=== PATIENT | male | born 1960 | race Caucasian/White ===

== ENCOUNTER 2016-12-04 03:10 | Emergency (ER) | payer OTHER ==
[~2016-12-04] VITALS: Ht 177.8 cm; Wt 89.1 kg
[~2016-12-04 03:10] MED LIST: AMLO5TAB2 PO; ATOR20TA PO; METF500T4 PO
--- NOTE | 2016-12-04 03:14 | ED.REPORT ---
HPI-Allergic Reaction Date of Service Dec 04, 2016 ED Provider: Eugene Espinoza MD Patient is a 56 year old male with a history of angioedema presents to the ED via EMS with worsening tongue swelling onset just prior to arrival. Patient reports history of similar episodes, all have which resolved without intervention. He denies wheezing and SOB. He is unsure if he has a peanut allergy and did consume peanuts earlier today. Nursing Notes Stated Complaint: ALLERGIC REACTION Nursing Notes Reviewed: Yes Allergies: Coded Allergies: No Known Allergies (Unverified , 10/03/16) Scheduled Amlodipine (Amlodipine) 5 Mg Tablet 5 MG PO DAILY Atorvastatin (Lipitor) 20 Mg Tablet 20 MG PO DAILY Metformin (Metformin) 500 Mg Tablet 500 MG PO BID Prednisone (PredniSONE) 20 Mg Tablet 20 MG PO TID Scheduled PRN Epinephrine (Epipen 2-Aniket) 0.3 Mg/0.3 Ml Auto.injct 0.3 MG IJ ONCE PRN PRN For Anaphyllaxis General Time Seen by MD: 03:14 Chief Complaint Allergic reaction Hx Obtained From: Patient, EMS Arrived By: Ambulance Onset Occurred: Just prior to arrival Symptom Duration: Since onset Progression Since Onset: Unchanged Severity: Current: No pain currently Recent Healthcare: Recent doctor visit Similar Sx Previous: Yes Past Medical History Past Medical History Angioedema Past Surgical History denies Smoking History Current Every Day Smoker Ambulatory Status Independent Review of Systems Respiratory: Denies: Shortness of breath, Wheezing Allergy / Immune: Reports: Allergic reaction Complete sys rev & neg: except as marked. Physical Exam Initial Vital Signs Vital Signs (First) Date Time Temp Pulse Resp B/P Pulse Ox O2 Delivery O2 Flow Rate FiO2 12/04/16 03:18 36.5 86 16 154/95 98 Room Air Initial VS: Reviewed, Vital signs abnormal General/Constitutional: Awake, Alert, Cooperative, Not toxic appearing Respiratory / Chest: Atraumatic, Breath sounds NL, Breath sounds = bilat, No respiratory distress, No rales, No rhonchi, No wheezing Cardiovascular: Heart rate NL, Regular rhythm, Heart sounds NL, No gallop, No murmurs, No rubs Skin: Atraumatic, Color NL, No rash, Warm, Dry Pharynx / Tonsils / Uvula: Positive: Uvula enlarged swollen tongue swollen pharynx Interpretation & Diagnostics Lab Results Interpretation Test 12/04/16 03:35 Hold Purple Top Tube Received (Received) Hold Blue Top Tube Received (Received) Hold Red Top Tube Received (Received) Hold [place] Top Tube Received (Received) ECG Interpretation Time: 03:47 Interpreted by: ED physician Normal ECG Interpretation: Normal ECG w/ rate of... (88) Re-Eval/Medical Decision Med Decision/Clinical Course 56-year-old male with recurrent episodes of angioedema of uncertain etiology. He was given IV Benadryl en route, and upon arrival here was given subcutaneous epinephrine, Solu-Medrol 125 mg, and a racemic epinephrine treatment. His symptoms gradually resolved. He was able to sleep some and upon awakening had no further swelling or abnormal sensation. Re-Evaluation/Progress : Time of Eval: 03:15 Patient Status: Condition improved, Mild relief Re-Evaluation/Progress Note: Pt rechecked. Pt's breathing has improved and he is more comfortable. Counseled Regarding: Diagnosis, Lab results, Need for follow-up, When/why to return to ED Discharge & Departure Primary Impression: Angio-edema Encounter type: subsequent encounter Qualified Code: T78.3XXD - Angioneurotic edema, subsequent encounter Disposition: Home Discharge Condition All VS Reviewed: Yes Condition: Stable Patient Instructions: Anaphylaxis (DC) Additional Instructions: Prednisone 20 mg by mouth 3 times a day for 5 days, #15 prescription written. Continue the process of evaluation to see if you can figure out the cause of this. Recommend that you have Benadryl and an EpiPen available. Referrals: NOPCP (PCP) Macielibe Attestation Portions of this note were transcribed by Antonio Jesus. I, Dr. Espinoza personally performed the history, physical exam and medical decision-making; I reviewed and confirmed the accuracy of the information in the transcribed note. Signed by: Angelica Whiting, 12/04/16 0601 Eugene Espinoza MD Dec 04, 2016 03:14 ANTONIO JESUS Dec 04, 2016 03:20
[2016-12-04 03:18] VITALS: BP 154/95; PULSE 86; RESP 16; O2SAT 98
[2016-12-04] MEDS ORDERED: Epinephrine Racemic 2.25% 0.5 mL Inhalation Solution NEB ONE (03:20)
[2016-12-04] MEDS ORDERED: 0.9% Sodium Chloride 1,000 ML IV ONE (03:20)
[2016-12-04] MEDS ORDERED: MethylprednisoLONE Sodium Succinate 62.5 mg/mL 2 mL Inj IVPUSH ONE (03:20)
[2016-12-04 03:35] VITALS: PULSE 86; RESP 14; O2SAT 96
[2016-12-04 04:21] VITALS: BP 139/71; PULSE 96; RESP 18; O2SAT 100
[2016-12-04 06:01] VITALS: BP 127/77; PULSE 96; RESP 19; O2SAT 99
[2016-12-04] MEDS ORDERED: EPIN0.3P2 IJ (06:02)
[2016-12-04] MEDS ORDERED: PRE20 PO (06:02)
[2016-12-04 06:27] VITALS: BP 132/78; PULSE 88; RESP 16; O2SAT 99
== END 2016-12-04 06:28 | disposition home or self-care (01) ==
LOC: SED 03:10
DX: T78.3XXA Angioneurotic edema, initial encounter (principal); R22.0 Localized swelling, mass and lump, head; Y93.89 Activity, other specified; Y92.89 Other specified places as the place of occurrence of the external cause; Y99.8 Other external cause status; F17.200 Nicotine dependence, unspecified, uncomplicated; Z79.84 Long term (current) use of oral hypoglycemic drugs
CPT/HCPCS: 93005; 94640; 96372; 96374; 99284; J0171; J2930; J7030

== ENCOUNTER 2017-07-09 06:41 | Observation (INO) | payer OTHER ==
[~2017-07-09] VITALS: Ht 175.3 cm; Wt 91.1 kg
[2017-07-09] VITALS (9 sets, daily range): BP systolic 149–198; BP diastolic 91–115; PULSE 83–99; RESP 15–22; O2SAT 95–98
--- NOTE | 2017-07-09 06:38 | ED.REPORT ---
HPI-Allergic Reaction Date of Service Jul 09, 2017 ED Provider: Amol Reynolds Pt is a 57 year old male with a history of angioedema, DM, hyperlipidemia and HTN who presents to the ED via EMS with worsening angioedema onset 03:00 today. He c/o mild dysphagia secondary to the angioedema. The pt also reports emesis and hematemesis, and he is currently experiencing nausea. He denies SOB, chest pain, abdominal pain, wheezing, and any other symptoms. EMS reports that pt does not have urticaria. Per pt, his symptoms have not worsened since being picked up by EMS. The pt states that he has experienced 3 similar episodes previously with one requiring intubation. He reports that he started taking lisinopril this month. The pt presented to the ED on 12/04/16 with similar symptoms after eating peanuts. His symptoms gradually resolved and he was discharged. He has previously reported at least 10 mild episodes of angioedema of unknown etiology that he did not seek medical attention for. Nursing Notes Stated Complaint: ANGIOEDEMA Chief Complaint: Angioedema Nursing Notes Reviewed: Yes Allergies: Coded Allergies: No Known Allergies (Unverified , 10/03/16) Scheduled Amlodipine (Amlodipine) 5 Mg Tablet 5 MG PO DAILY Atorvastatin (Lipitor) 20 Mg Tablet 20 MG PO DAILY Metformin (Metformin) 500 Mg Tablet 500 MG PO BID Prednisone (PredniSONE) 20 Mg Tablet 20 MG PO TID Scheduled PRN Epinephrine (Epipen 2-Aniket) 0.3 Mg/0.3 Ml Auto.injct 0.3 MG IJ ONCE PRN PRN For Anaphyllaxis General Time Seen by MD: 06:38 Chief Complaint Other (Angioedema) Hx Obtained From: Patient, EMS Arrived By: Ambulance Onset Occurred: 1 - 4 hours ago Symptom Duration: Since onset Severity: Current: No pain currently Severity: Maximum: No pain Recent Healthcare: No recent doctor visit, No recent hospitalization Similar Sx Previous: Yes Past Medical History Past Medical History Angioedema - 3 episodes requiring medical attention with 1 episode requiring intubation Reports: Diabetes mellitus, Hyperlipidemia, Hypertension Past Surgical History denies Smoking History Current Every Day Smoker Social History Alcohol Use: "Social" Drug Use: Denies drug use Ambulatory Status Independent Review of Systems + Angioedema + dysphagia Denies urticaria Respiratory: Denies: Shortness of breath, Wheezing GI: Reports: Hematemesis, Nausea, Vomiting, Denies: Abdominal pain Complete sys rev & neg: except as marked. Cardiovascular: Denies: Chest pain Physical Exam Initial Vital Signs Vital Signs (First) Date Time Temp Pulse Resp B/P Pulse Ox O2 Delivery O2 Flow Rate FiO2 07/09/17 06:44 36.6 96 20 198/103 98 Room Air Initial VS: Reviewed Head / Eyes: Atraumatic, Normocephalic Neck: Supple, Full range of motion Abdomen / GI: Soft, Non-tender Extremities: Vascular intact, Neuro intact Neurologic: Alert, Oriented, Nonfocal Psychiatric: Mood/affect normal, Behavior normal General/Constitutional: Awake, Alert Respiratory / Chest: Atraumatic, Breath sounds NL, Breath sounds = bilat Cardiovascular: Heart rate NL, Regular rhythm, Heart sounds NL Skin: Atraumatic, Warm, Dry, Intact Mouth: Positive: Angioedema present... Interpretation & Diagnostics Lab Results Interpretation Result Diagram: 07/09/17 0710 07/09/17 0643 Test 07/09/17 06:43 07/09/17 07:10 Sodium Level 140mEq/L (134-144) Potassium Level 5.0mEq/L (3.5-5.2) Chloride Level 99mEq/L (97-108) Carbon Dioxide Level 23mmol/L (18-29) Blood Urea Nitrogen 16mg/dL (6-24) Creatinine 1.05mg/dL (0.76-1.27) Estimat Glomerular Filtration Rate 77mL/min (>59) Glucose Level 133mg/dL (60-99) Calcium Level 9.3mg/dL (8.5-10.1) Total Bilirubin 0.4mg/dL (0.0-1.2) Aspartate Amino Transf (AST/SGOT) 35U/L (0-50) Alanine Aminotransferase (ALT/SGPT) 29U/L (0-44) Alkaline Phosphatase 55U/L (25-150) Total Protein 7.8g/dL (6.4-8.4) Albumin 4.4g/dL (3.4-5.0) White Blood Count 12.4th/mm3 (3.8-10.1) Red Blood Count 4.42mil/mm3 (4.40-5.80) Hemoglobin 14.1g/dL (13.8-17.2) Hematocrit 40.7% (41.0-50.0) Mean Corpuscular Volume 92.1fL (81-100) Mean Corpuscular Hemoglobin 31.9pg (27.0-35.0) Mean Corpuscular Hemoglobin Concent 34.6% (32.0-37.0) Red Cell Distribution Width 12.2% (12.3-15.4) Platelet Count 225bil/L (150-400) Neutrophils (%) (Auto) 44.2% (40-74) Lymphocytes (%) (Auto) 38.3% (14-46) Monocytes (%) (Auto) 12.1% (4-12) Eosinophils (%) (Auto) 4.9% (0-5) Basophils (%) (Auto) 0.3% (0-3) Re-Eval/Medical Decision Source of Hx: Old records Re-Evaluation/Progress #1: Time of Eval: 07:21 Re-Evaluation/Progress Note: Pt rechecked. Pt reports that his angioedema feels the same. Informed pt of plan for admission. Pt understands and agrees with plan for admission. All questions addressed. Re-Evaluation/Progress #2: Time of Eval: 08:05 Re-Evaluation/Progress Note: Pt rechecked. Pt is resting comfortably. Consultation : Referral / Consult Name: Tunde Mendoza MD Consulted With: Hospitalist Call Returned at: 08:07 [employer]ash[employer] Designer: Will see patient, Agrees with eval, Agrees with plan, Accepts admit Counseled Regarding: Diagnosis, Lab results, Need for admission Discharge & Departure Primary Impression: Angio-edema Encounter type: initial encounter Qualified Code: T78.3XXA - Angioneurotic edema, initial encounter Disposition: ADMITTED TO HOSPITAL Discharge Condition All VS Reviewed: Yes Condition: Stable Referrals: Arnav Oconnor MD (PCP) Crit Care Except Billable Proc Time Spent: 30-74 minutes Services Performed: Patient management by me, Time spent at bedside, Reviewing test results, Reviewing imaging, Discussing patient care, Documentation in record Scribe Attestation Portions of this note were transcribed by Julia Wolf. I, Dr. Reynolds personally performed the history, physical exam and medical decision-making; I reviewed and confirmed the accuracy of the information in the transcribed note. Signed by: Angelica Rivas, 07/09/17. copies to: Arnav Oconnor MD, Kirk H MD Jul 09, 2017 06:38 Julia Bowers Jul 09, 2017 06:50
[~2017-07-09 06:41] MED LIST changes: +0.9% Sodium Chloride 1,000 ML IV ONE; +EPIN0.3P2 IJ; +Epinephrine Racemic 2.25% 0.5 mL Inhalation Solution NEB ONE; +Famotidine Inj 20 MG in IV Premix 1 EACH IV ONE; +Glucagon 1 mg/mL Inj IV ONE; +MethylprednisoLONE Sodium Succinate 62.5 mg/mL 2 mL Inj IVPUSH ONE; +PRE20 PO
[2017-07-09 07:22] LABS: Mean Corpuscular Hemoglobin 31.9 pg (27.0-35.0); Mean Corpuscular Volume 92.1 fL (81-100)
[2017-07-09] MEDS ORDERED: Alum-Mag Hydrox-Simeth 30 mL Suspension PO PRN (08:15)
[2017-07-09] MEDS ORDERED: Ondansetron 2 mg/mL 2 mL Inj IVPUSH PRN (08:15)
[2017-07-09] MEDS ORDERED: Polyethylene Glycol (PEG) 17 Gm Powder PO PRN (08:15)
[2017-07-09 08:21] LABS: BASOPHILS % (AUTO) 0.3 % (0-3); EOSINOPHILS % (AUTO) 4.9 % (0-5); MONOCYTES % (AUTO) 12.1 % (4-12); NEUTROPHILS % (AUTO) 44.2 % (40-74)
[2017-07-09] MEDS ORDERED: Heparin 5,000 Unit/mL Inj SUBQ SCH (08:30)
[2017-07-09] MEDS ORDERED: METF500T7 PO (08:59)
[2017-07-09] MEDS ORDERED: LISI10TA PO (08:59)
[2017-07-09] MEDS ORDERED: SIMV20TA4 PO (08:59)
--- NOTE | 2017-07-09 13:56 | PCM.HPMED ---
Subjective Date of Service Jul 09, 2017 Primary Provider: Admitting Physician: Tunde Mendoza MD Primary Care Physician: Arnav Oconnor MD Attending Physician: Tunde Mendoza MD Chief Complaint: Tongue and facial swelling History of Present Illness: Patient is a 57-year-old male from home who carries a medical history significant for diabetes type II, dyslipidemia, and hypertension presented to the ED with significant tongue and left facial swelling. Per patient, he reports left facial swelling with lips involvement and associated facial pain that started around 3:00 AM today. Patient activated EMS after taking 1 dose of Benadryl without effect and that the swelling seems to be spreading to his right tongue and cheek. Patient had past history of angioedema started in the fall of 2014 with 1 event in September 2016 resulting in a compromised airway, requiring emergent intubation. A difficult intubation per patient. Patient states increasing in frequency of the usually left facial swelling with tongue involvement, 2x this month. Each episode resolved with Benadryl however. Interestingly, patient was started on lisinopril for hypertension month ago. Patient was prescribed with Benadryl nightly. Noncompliant to medication however due to increasing drowsiness. 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 On interview, patient denies any difficulty breathing, swallowing. He states that left facial and tongue swelling has significantly decreased since this morning. No shortness of breath, chest pain, wheezes, lightheadedness or dizziness. He further denies any rashes. He does note some itching in his throat on presentation in ED, however this is resolved. Patient states that he has had increasing cough recently, and violently bringing up tinges of blood. Denies any melanotic stool. In the ED, vital significant for blood pressure 198/103, repeat blood pressure 160/90. Respiratory rate 20, pulse oximetry 98% on room air. Patient received ischemic epinephrine, Solu-Medrol, Benadryl, and also famotidine to completely inhibit histamine receptors prior to admission onto medical floor for observation. Review of Systems: A comprehensive review of systems was conducted with the patient and found to be negative except as above in the History of Present Illness. 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 Hx Alcohol Use: Yes Hx Substance Use: No Hx Tobacco Use: Yes (I have from reports the patient is a current smoker, and tobacco chewer) Smoking Status: Current Every Day Smoker Exam Vital Signs Vital Sign - Last Date Time Temp Pulse Resp B/P Pulse Ox O2 Delivery O2 Flow Rate FiO2 07/09/17 12:32 36.7 86 20 170/109 98 Room Air 07/09/17 09:25 2.00 Intake and Output 07/08/17 07/08/17 07/09/17 Cumulative From/Thru 15:00 23:00 07:00 07/09/17 06:44 - 07/09/17 06:53 Intake Total 1000 ml 1000 ml Balance 1000 ml 1000 ml Intake IV Total 1000 ml 1000 ml Exam General: No acute distress, appropriately interactive HEENT: Normocephalic, atraumatic. PERRLA, EOMI, Anicteric sclerae, moist conjunctivae. Mild left lower cheek swelling, Tongue with swelling, no oral sores or rash noted, Mallampati score of 4 Neck: No JVD, No bruits. No lymphadenopathy or thyromegaly. Cardiovascular: Regular rate and rhythm with no murmurs, rubs, or gallops appreciated Pulmonary: b/l air sound with no crackles, wheezes, or rhonchi. no use of accessory muscles. Abdomen: +Bowel sound, Soft, nontender, nondistended. Extremities: No clubbing or cyanosis, no lymphedema, no b/l lower leg edema Skin: Normal temperature, turgor, and texture; no rash. No visualized skin ulcer. Neurological: CN II-VII grossly intact, moving equally on all 4 extremities Psychiatric: Normal mood and affect. AOx3 Lab and Diagnostics Result Diagram: 07/09/17 0710 07/09/17 0643 Assessment & Plan Patient 57-year-old male with medical history of hypertension, dyslipidemia, and diabetes type II admitted on observation for angioedema. Angioedema -Unknown trigger, possible peanut allergies, possible lisinopril -Received famotidine, Benadryl, Solu-Medrol, racemic epinephrine -Continue Benadryl 25 mg when necessary, -We will send patient home with prednisone 50 mg PRN -Recommend patient follow-up with optical instrument inspector to define root cause of his angioedema Severe essential hypertension -Discontinue lisinopril. HCTZ gives headaches in the past. -cont amlodipine. consider increasing amlodipine 10mg Diabetes type II, [id number]-cysupbkoh -A1c pending -Holding metformin -Start low-dose lispro sliding scale Dyslipidemia -Holding simvastatin -Started atorvastatin DVT prophylaxis heparin CODE STATUS full code Patient Status: Patient is admitted under observation status with expected length of stay LESS than 2 midnights due to severity of presenting symptoms, risk of adverse event, and complexity of treatment plan. GI Prophylaxis: H2 peace VTE Prophylaxis: Sub-Q Heparin (Unfractionated) Resuscitation Status: CPR: Attempt Resuscitation Attending Statement I interviewed and examined the patient on rounds today. Recommend high-dose cetirizine. Also counseled patient to take prednisone promptly with any emergent symptoms. I agree with the assessment and plan as stated above. copies to: Arnav Oconnor MD Raymond,Danny H Jul 09, 2017 13:56 Tunde Mendoza MD Jul 10, 2017 07:09
[2017-07-09] MEDS ORDERED: Glucose 40% Oral Gel 15 Gm Tube PO PRN (14:00)
[2017-07-09] MEDS ORDERED: Dextrose 10% 250 ML IV PRN (14:40)
[2017-07-09] MEDS ORDERED: PRED50TA PO (15:08)
[2017-07-09] MEDS ORDERED: AMLO10TA3 PO (15:08)
--- NOTE | 2017-07-09 15:18 | PCM.DIMED ---
Discharge Instructions Date of Service Jul 09, 2017 Dates of Hospitalization Jul 09, 2017 at 08:35 Discharge Diagnosis Discharge Diagnosis Angioedema Diabetes type II, [id number] Essential hypertension Dyslipidemia Medication Instructions Additional med instructions For your angioedema -Take [id number] at double strength loratadine 20mg at onset of swelling -Additionally, take prednisone 50mg at onset of swelling -Epi-pen as well. For your blood pressure medication: -Stopped taking lisinopril -Increase your amlodipine 10 mg daily Resume all the medication Diet Discharge Diet: No restrictions Activity Discharge Activity: No restrictions Call your provider Call your provider for: Shortness of breath Patient Instructions Follow-up plan Angioedema, we admitted you out of concern for possible airway obstruction. Please take your medications as instructed above. Recommend follow-up with your primary care provider within a week -Suggest that you get a referral to an research lab assistant to figure out the root cause of your angioedema. Follow-up with PCP in: 1 week Danny Raymond DO Jul 09, 2017 15:18
--- NOTE | 2017-07-09 15:43 | PCM.DC.MED ---
Discharge Summary Date of Service Jul 09, 2017 Dates of Hospitalization Date of Hospital Admission Jul 09, 2017 at 08:35 Date of Discharge: Jul 09, 2017 Providers: Admitting Physician: Tunde Mendoza MD Primary Care Physician: Arnav Oconnor MD Attending Physician: Tunde Mendoza MD Diagnosis at Time of Discharge Diagnosis at Time of Discharge Angioedema Diabetes type II, [id number] Essential hypertension Dyslipidemia Brief History Patient is a 57-year-old male from home who carries a medical history significant for diabetes type II, dyslipidemia, and hypertension presented to the ED with significant tongue and left facial swelling. Per patient, he reports left facial swelling with lips involvement and associated facial pain that started around 3:00 AM today. Patient activated EMS after taking 1 dose of Benadryl without effect and that the swelling seems to be spreading to his right tongue and cheek. Patient had past history of angioedema started in the fall of 2014 with 1 event in September 2016 resulting in a compromised airway, requiring emergent intubation. A difficult intubation per patient. Patient states increasing in frequency of the usually left facial swelling with tongue involvement, 2x this month. Each episode resolved with Benadryl however. Interestingly, patient was started on lisinopril for hypertension month ago. Patient was prescribed with Benadryl nightly. Noncompliant to medication however due to increasing drowsiness. 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 On interview, patient denies any difficulty breathing, swallowing. He states that left facial and tongue swelling has significantly decreased since this morning. No shortness of breath, chest pain, wheezes, lightheadedness or dizziness. He further denies any rashes. He does note some itching in his throat on presentation in ED, however this is resolved. Patient states that he has had increasing cough recently, and violently bringing up tinges of blood. Denies any melanotic stool. In the ED, vital significant for blood pressure 198/103, repeat blood pressure 160/90. Respiratory rate 20, pulse oximetry 98% on room air. Patient received ischemic epinephrine, Solu-Medrol, Benadryl, and also famotidine to completely inhibit histamine receptors prior to admission onto medical floor for observation. Hospital Course Patient 57-year-old male with medical history of hypertension, dyslipidemia, and diabetes type II admitted on observation for angioedema. Angioedema -Unknown trigger, possible peanut allergies, possible lisinopril -Received famotidine, Benadryl, Solu-Medrol, racemic epinephrine -Admitted for possible worsening of obstructive airway. -Difficult intubation in the past with severe swelling and edemetous epiglottis. -Continue Benadryl 25 mg when necessary, -Discharge home with prednisone 50 mg PRN -Recommend patient follow-up with package maker to define root cause of his angioedema -D/c lisinopril Severe essential hypertension -Discontinue lisinopril. HCTZ gives headaches in the past. -Increasing amlodipine to 10 mg daily Diabetes type II, [id number] -A1c pending -Start low-dose lispro sliding scale while inpatient -Resume metformin on discharge Dyslipidemia -Started atorvastatin while inpatient -Resume simvastatin on discharge Exam Vital Signs (Last) Date Time Temp Pulse Resp B/P Pulse Ox O2 Delivery O2 Flow Rate FiO2 07/09/17 14:54 99 158/95 07/09/17 12:32 36.7 20 98 Room Air 07/09/17 09:25 2.00 Exam General: No acute distress, appropriately interactive HEENT: Normocephalic, atraumatic. PERRLA, EOMI, Anicteric sclerae, moist conjunctivae. Mild left lower cheek swelling, Tongue with some swelling, decreased to near baseline, no oral sores or rash noted, Mallampati score of 3 Neck: No JVD, No bruits. No lymphadenopathy or thyromegaly. Cardiovascular: Regular rate and rhythm with no murmurs, rubs, or gallops appreciated Pulmonary: b/l air sound with no crackles, wheezes, or rhonchi. no use of accessory muscles. Abdomen: +Bowel sound, Soft, nontender, nondistended. Extremities: No clubbing or cyanosis, no lymphedema, no b/l lower leg edema Skin: Normal temperature, turgor, and texture; no rash. No visualized skin ulcer. Neurological: CN II-VII grossly intact, moving equally on all 4 extremities Psychiatric: Normal mood and affect. AOx3 Test 07/09/17 06:43 07/09/17 07:10 Sodium Level 140mEq/L (134-144) Potassium Level 5.0mEq/L (3.5-5.2) Chloride Level 99mEq/L (97-108) Carbon Dioxide Level 23mmol/L (18-29) Blood Urea Nitrogen 16mg/dL (6-24) Creatinine 1.05mg/dL (0.76-1.27) Estimat Glomerular Filtration Rate 77mL/min (>59) Glucose Level 133mg/dL (60-99) Calcium Level 9.3mg/dL (8.5-10.1) Total Bilirubin 0.4mg/dL (0.0-1.2) Aspartate Amino Transf (AST/SGOT) 35U/L (0-50) Alanine Aminotransferase (ALT/SGPT) 29U/L (0-44) Alkaline Phosphatase 55U/L (25-150) Total Protein 7.8g/dL (6.4-8.4) Albumin 4.4g/dL (3.4-5.0) White Blood Count 12.4th/mm3 (3.8-10.1) Red Blood Count 4.42mil/mm3 (4.40-5.80) Hemoglobin 14.1g/dL (13.8-17.2) Hematocrit 40.7% (41.0-50.0) Mean Corpuscular Volume 92.1fL (81-100) Mean Corpuscular Hemoglobin 31.9pg (27.0-35.0) Mean Corpuscular Hemoglobin Concent 34.6% (32.0-37.0) Red Cell Distribution Width 12.2% (12.3-15.4) Platelet Count 225bil/L (150-400) Neutrophils (%) (Auto) 44.2% (40-74) Lymphocytes (%) (Auto) 38.3% (14-46) Monocytes (%) (Auto) 12.1% (4-12) Eosinophils (%) (Auto) 4.9% (0-5) Basophils (%) (Auto) 0.3% (0-3) Discharge Medications Discharge Medications Amlodipine (Amlodipine) 10 Mg Tablet 10 MG PO DAILY Prescribed by: ANDERSON EPSTEIN DO Metformin ER (Metformin ER) 500 Mg Tablet 500 MG PO TIDWM (Reported) Prednisone (PredniSONE) 50 Mg Tablet 50 MG PO ASDIRECTED Prescribed by: ANDERSON EPSTEIN DO Simvastatin (Simvastatin) 20 Mg Tablet 20 MG PO HS (Reported) As needed Epinephrine (Epipen 2-Aniket) 0.3 Mg/0.3 Ml Auto.injct 0.3 MG IJ ONCE PRN PRN For Anaphyllaxis Prescribed by: VIKI JONES MD Additional med instructions For your angioedema -Take [id number] at double strength loratadine 20mg at onset of swelling -Additionally, take prednisone 50mg at onset of swelling -Epi-pen as well. For your blood pressure medication: -Stopped taking lisinopril -Increase your amlodipine 10 mg daily Resume all the medication Followup Plan Follow-up plan Angioedema, we admitted you out of concern for possible airway obstruction. Please take your medications as instructed above. Recommend follow-up with your primary care provider within a week -Suggest that you get a referral to an package maker to figure out the root cause of your angioedema. Discharge Diet: No restrictions Discharge Activity: No restrictions Follow-up with PCP in: 1 week Time spent 35 minutes Attending Statement I interviewed and examined the patient on rounds today. I agree with the assessment and plan as stated above. copies to: Arnav Oconnor MD,Anderson H Jul 09, 2017 15:43 Tunde Mendoza MD Jul 10, 2017 07:11
--- NOTE | 2017-07-09 15:50 | NUR ---
Arrived, Discharge 899 - Received report from Eugenia Boykin RN in the ED. 924 - He arrived from the ED to [facility] 2002 with a diagnosis of angioedema. He was settled into his room. 929 - Discussed his care with Dr. Mendoza, Dr. Raymond, and the rest of the multidisciplinary care team. 1256 - Noted pt did not have any diet ordered. Paged Dr. Mendoza for a diet order. 1315 - Spoke with the patient about his new diet that was ordered. He said he actually really wanted to leave now as he was very worried about his mounting hospital bills and that "every hour was another $1000." Went to speak to Dr. Mendoza for the patient about this. Dr. Mendoza wanted his high blood pressure treated first and said he could then discharge later this afternoon. 1330 - Noted that the patient took off his desk monitor and got dressed as if ready to go home. Gave him the ordered Amlodipine and told him the Doctor's plan. 1455 - Dr. Raymond had stopped by to talk to him about possible discharge a few minutes prior. The patient stated to this nurse that he really just wanted to leave AMA and that he didn't want to take the Prednisone that Dr. Raymond had talked to him about as he experienced bad side effects previously from taking it. This information was passed along to Dr. Mendoza and Dr. Raymond. They said they would try to work on his discharge now. Notified the patient that the MDs were trying to discharge him so that his hospital bill would be smaller. Informed him that if he left AMA his insurance would not assist in paying his hospital bill. He said that at this point he has so many hospital bills that it wouldn't matter. He said he would wait until 1530 and leave at that point whether he had the discharge paperwork or he had to sign the AMA paperwork. He was visibly distressed at all his medical bills. 1535 - He discharged at this time. He said he didn't have enough galan and would walk to [place] to where he needed to go. This nurse offered to try and look into transportation options for him, but he declined saying last time that he was charged a bill for the transportation. Staff had offered a couple of times to speak to the Campaign Marketing Specialist about getting him financial assistance, but he declined saying he did not get the help he needed with his previous hospital stay. His IV was discontinued intact. Dr. Raymond came by to explain his discharge instructions and new medications to him. He thanked Dr. Raymond and this nurse for taking care of him. Took all his belongings with him. His home medication were retrieved from the pharmacy. His Lisinopril was disposed of per his permission since it was discontinued by Dr. Raymond. Was walked out by the STRAIGHT KNIFE MACHINE CUTTER to the front door.
[2017-07-09] MEDS ORDERED: Insulin LISPRO 300 Unit/3 mL Inj SUBQ SCH (17:30)
== END 2017-07-09 15:35 | disposition home or self-care (01) ==
LOC: SED 06:41 → PCC 08:35
PROVIDERS: ADMIT Internal Medicine; ATTEND Internal Medicine
DX: T78.3XXA Angioneurotic edema, initial encounter (principal); I10 Essential (primary) hypertension; E11.9 Type 2 diabetes mellitus without complications; E78.5 Hyperlipidemia, unspecified; F17.210 Nicotine dependence, cigarettes, uncomplicated; Z79.84 Long term (current) use of oral hypoglycemic drugs
CPT/HCPCS: 36415; 80053; 83036; 85027; 94799; 96361; 96374; 96375; 99291; G0378; J1200; J1815; J2930; J3490; J7030